=== PATIENT | female | born 1995 | race Two or more races ===

== ENCOUNTER 2018-04-16 14:56 | Day surgery (SDC) | payer OTHER ==
[2018-04-16] MEDS ORDERED: SODIUM CHLORIDE 0.9% 500 ML INFUS.BAG IV ONE (15:00)
--- NOTE | 2018-04-16 15:04 | PDOC ---
Rapid Medical Evaluation Time Seen by Provider: 04/16/18 15:03 Medical Evaluation: Allergies Allergy/AdvReac Type Severity Reaction Status Date / Time Milk Containing Products Allergy Severe Difficulty Verified 03/25/18 05:29 [Milk Products] Breathing SEAFOOD Allergy Severe Difficulty Uncoded 03/25/18 05:29 Breathing 04/16/18 15:03 pt c/o: chest pain, Pt on brief exam: pt ordered for: pt to proceed to the ED
[2018-04-16 15:16] VITALS: BMI 30.4
[2018-04-16] MEDS ORDERED: SODIUM CHLORIDE 1,000 ML IV STA (15:16)
--- NOTE | 2018-04-16 15:16 | PDOC ---
Rapid Medical Evaluation Time Seen by Provider: 04/16/18 15:03 Medical Evaluation: Allergies Allergy/AdvReac Type Severity Reaction Status Date / Time Milk Containing Products Allergy Severe Difficulty Verified 03/25/18 05:29 [Milk Products] Breathing SEAFOOD Allergy Severe Difficulty Uncoded 03/25/18 05:29 Breathing 04/16/18 15:10 Pt c/o: abd pain since yesterday, took motrin no relief, no diarrhea, pain with urination, 6 weeks ago vag delivery, no complications, 1 episode of vomiting this am Pt on brief exam: tachy, 100.1, no back pain, no luq/ruq pain, + rlq tenderness pt ordered for: ua u cx, upreg, cbc, comp, lipase , mag, septic w/u pt to proceed to the ED Discharge Disposition - Diagnosis Abdominal pain - Referrals - Patient Instructions - Post Discharge Activity
[2018-04-16] MEDS ORDERED: ACETAMINOPHEN 1000 MG/100 ML VIAL (NON FORMULARY) IVPB ONE ×2 (15:18→21:15)
[2018-04-16] MEDS ORDERED: ACETAMINOPHEN INJECTION 100 ML IVPB ONE (15:22)
[2018-04-16 15:52] LABS: BASO % 0.3 % (0-2.0); EOS % 0.3 % (0-4.5); HEMATOCRIT 40.9 % (32.4-45.2); HEMOGLOBIN 13.8 GM/dL (10.7-15.3); LYMPH % 9.5 % (8-40); MCH 27.3 pg (25.7-33.7); MCHC 33.7 g/dl (32.0-36.0); MEAN CELL VOLUME 81.1 fl (80-96); MONO % 6.4 % (3.8-10.2); NEUT % 83.5 % (42.8-82.8); PLATELET COUNT 333 K/MM3 (134-434); RBC 5.04 M/mm3 (3.60-5.2); RDW 14.9 % (11.6-15.6); WHITE BLOOD COUNT 14.2 K/mm3 (4.0-10.0)
[2018-04-16 16:10] LABS: MAGNESIUM 1.9 mg/dL (1.8-2.4)
[2018-04-16 16:16] LABS: ALBUMIN 4.1 g/dl (3.4-5.0); ANION GAP 14 MMOL/L (8-16); BILIRUBIN,TOTAL 0.5 mg/dL (0.2-1.0); BLOOD UREA NITROGEN 12 mg/dL (7-18); CALCIUM 9.3 mg/dL (8.5-10.1); CHLORIDE 105 mmol/L (98-107); CO2 22 mmol/L (21-32); CREATININE 0.7 mg/dL (0.55-1.02); GLUCOSE,RANDOM 99 mg/dL (74-106); POTASSIUM 3.8 mmol/L (3.5-5.1); SGOT/AST 47 U/L (15-37); SGPT/ALT 94 U/L (12-78); SODIUM 141 mmol/L (136-145); TOT PROT 9.1 g/dl (6.4-8.2)
[2018-04-16 16:17] LABS: ALK PHOS 113 U/L (45-117)
[2018-04-16 16:28] LABS: ACTIVATED PTT 28.4 SECONDS (25.2-36.5); INR 1.04 (0.83-1.09); PROTHROMBIN TIME (PATIENT) 11.8 SEC (9.7-13.0)
--- NOTE | 2018-04-16 16:36 | PDOC ---
Attending Attestation - Medical Decision Making 04/16/18 19:[address] Abraham, surgeon interventional sale consultant, case discussed with resident. <HerbelkinsalvadorShyannerebel - Last Filed: 04/16/18 20:16> - Resident Resident Name: Mickie Delacruz - ED Attending Attestation I have performed the following: I have examined & evaluated the patient, The case was reviewed & discussed with the resident, I agree w/resident's findings & plan, Exceptions are as noted - HPI HPI: 04/16/18 16:49 Ms Hodges is a 22 yo F who presents to the ER with a complaint of abdominal pain She is almost 3 weeks s/p She reports lower abdominal pain No nausea, vomiting or diarrhea Malodorous vaginal discharge noted today - Physicial Exam PE: 04/16/18 16:50 GENERAL: The patient is in no acute distress. LUNGS: Breath sounds equal, clear to auscultation bilaterally. No wheezes, and no crackles. HEART:Regular rate and rhythm, normal S1 and S2 without murmur, rub or gallop. ABDOMEN: Soft, lower abdominal tenderness to palpation, no involuntary guarding NEUROLOGICAL: Cranial nerves II through XII grossly intact. Normal speech. No focal neurological deficits. SKIN: Warm, Dry, - Medical Decision Making 04/16/18 16:52 22 yo F presenting to the ER with fever and abdominal pain DD: endometritis, retained product, Appendicitis, UTI, pyelonephritis Will do: Labs, US to eval for retained products, CT to eval for appendicitis IVF Anti pyretics Re assess 04/16/18 17:09 Laboratory Tests 04/16/18 04/16/18 04/16/18 15:45 15:45 15:45 WBC 14.2 H Hgb 13.8 Hct 40.9 D Plt Count 333 D Absolute Neuts (auto) 11.9 H Neutrophils % 83.5 H D Lymphocytes % 9.5 D INR 1.04 BUN 12 Creatinine 0.7 Urine HCG, Qual 04/16/18 15:45 WBC Hgb Hct Plt Count Absolute Neuts (auto) Neutrophils % Lymphocytes % INR BUN Creatinine Urine HCG, Qual Negative 04/16/18 17:29 EKG: NSR rate of 100 bpm, axis nml, intervals nml, no st elevations or depressions Pt signed out to Dr. Alvarez CT demonstrates acute appendicitis Pt told about CT findings Call placed to Dr Abraham <Jessica Valentin - Last Filed: 04/19/18 09:14> Attestations - Attestations 04/16/18 19:47 Documentation prepared by Liban Marshall, acting as manager medical device for Jessica Valentin MD. <Liban Marshall - Last Filed: 04/16/18 20:16>
--- NOTE | 2018-04-16 17:03 | PDOC ---
History of Present Illness - General Chief Complaint: Pain Stated Complaint: ABDOMINAL PAIN Time Seen by Provider: 04/16/18 15:03 - History of Present Illness Initial Comments: Jacinta Hodges is a 22yo woman with a PMH of hypothyroidism and recent vaginal delivery 3 weeks ago who presents with lower abdominal pain, R>L, since last night. She reports that the pain first started overnight at about 1:30. She took some ibuprofen at that time and went back to sleep. However, she noticed that the pain was still present this morning when she woke up. Initially it was throughout her entire abdomen, but she felt that it was more tender on the right side when she was evaluated in triage today. The pain is about an 8/10 in intensity. She also reports that going over bumps in the car on the way to the ED caused a lot of abdominal pain. Ms Hodges denies any nausea, vomiting, diarrhea, or constipation but does endorse anorexia today. She was only able to drink some tea this morning. She did not check her temperature at home but states her told her she felt warm this morning. Otherwise, she has been well following her delivery. She has not had any unusual vaginal discharge but feels there may have been a little bit of a bad odor this morning. She has not noticed any odor previously. She denies any dysuria, urinary frequency, or urgency. She decided to present to the ED for evaluation because the pain had worsened overnight and throughout the morning rather than improving. Past History - Past Medical History Allergies/Adverse Reactions: Allergies Allergy/AdvReac Type Severity Reaction Status Date / Time Milk Containing Products Allergy Severe Difficulty Verified 04/16/18 15:10 [Milk Products] Breathing SEAFOOD Allergy Severe Difficulty Uncoded 04/16/18 15:10 Breathing Home Medications: Ambulatory Orders Levothyroxine [Synthroid -] 50 mcg PO DAILY 03/24/18 Levothyroxine [Synthroid -] 112 mcg PO DAILY 03/24/18 Asthma: No Cancer: No Cardiac Disorders: No COPD: No DVT: No Diabetes: No HTN: No Seizures: No Thyroid Disease: Yes - Reproductive History (#): 1 Para: 0 - Suicide/Smoking/Psychosocial Hx Smoking Status: No Smoking History: Never smoked Have you smoked in the past 12 months: No Number of Cigarettes Smoked Daily: 0 Information on smoking cessation initiated: No Hx Alcohol Use: No Drug/Substance Use Hx: No Substance Use Type: None Hx Substance Use Treatment: No Review of Systems - Review of Systems Comments:: General: No fevers, no chills, no weight change, no malaise. +anorexia HEENT: No changes in vision, no changes in hearing, no congestion, no sore throat CV: No chest pain, no palpitations, no LE edema Pulm: No SOB, no cough, no wheezing GI: No nausea or vomiting, no change in bowel habits, no melena. +lower abdominal pain : No frequency, no urgency, no dysuria. +recent vaginal delivery Musc: No back pain, no joint swelling, no recent injury Skin: No rash, no lesions, no erythema Endo: No excessive thirst, no heat/cold intolerance Heme: No unusual bruising or bleeding, no swollen glands Neuro: No syncope, no numbness/tingling, no focal weakness Vasc: No claudication Psych: No recent change in mood, no SI or HI *Physical Exam - Vital Signs Last Vital Signs Temp Pulse Resp BP Pulse Ox 100.1 F H 128 H 18 123/83 100 04/16/18 15:11 04/16/18 15:11 04/16/18 15:11 04/16/18 15:11 04/16/18 15:11 - Physical Exam Comments: General: Comfortable, no acute distress HEENT: PERRL, EOMI, MMM, voice normal, normal neck ROM, no LAD Cards: Tachycardic, regular, no rub/murmur appreciated Pulm: Comfortable on room air, clear to auscultation bilaterally Abd: Soft, non-distended. Mildly TTP in lower abdomen. No : No CVA tenderness Ext: Atraumatic. No LE edema. ROM intact. Strength 5/5 and equal bilaterally Vasc: Extremities WWP. Palpable radial and pedal pulses bilaterally Neuro: A&Ox3, CN grossly intact, normal speech, motor/sensory grossly intact and symmetric Psych: Mood appropriate to situation ED Treatment Course - LABORATORY CBC & Chemistry Diagram: 04/16/18 15:45 04/16/18 15:45 - ADDITIONAL ORDERS Additional order review: Laboratory Results 04/16/18 04/16/18 04/16/18 16:40 15:45 15:45 PT with INR INR PTT (Actin FS) Sodium Potassium Chloride Carbon Dioxide Anion Gap BUN Creatinine Creat Clearance w eGFR Random Glucose Lactic Acid Calcium Magnesium 1.9 Total Bilirubin AST ALT Alkaline Phosphatase Total Protein Albumin Lipase 120 Urine HCG, Qual Negative Blood Type O POSITIVE Antibody Screen Negative 04/16/18 04/16/18 04/16/18 15:45 15:45 15:45 PT with INR 11.80 INR 1.04 PTT (Actin FS) 28.4 Sodium 141 Potassium 3.8 Chloride 105 Carbon Dioxide 22 Anion Gap 14 BUN 12 Creatinine 0.7 Creat Clearance w eGFR > 60 Random Glucose 99 Lactic Acid 2.1 H Calcium 9.3 Magnesium Total Bilirubin 0.5 AST 47 H ALT 94 H Alkaline Phosphatase 113 Total Protein 9.1 H Albumin 4.1 Lipase Urine HCG, Qual Blood Type Antibody Screen 04/16/18 15:45 RBC 5.04 MCV 81.1 MCHC 33.7 RDW 14.9 D MPV 8.0 Neutrophils % 83.5 H D Lymphocytes % 9.5 D Monocytes % 6.4 Eosinophils % 0.3 D Basophils % 0.3 - RADIOLOGY Radiology Studies Ordered: Category Date Time Status ABDOMEN & PELVIS CT WITH CONTR [CT] Stat CT Scan 04/16/18 16:49 Ordered PELVIC / BLADDER US [US] Stat Ultrasound 04/16/18 16:49 Ordered - Medications Given in the ED: ED Medications Discontinued Medications Generic Name Dose Route Start Last Admin Trade Name Gabrielq PRN Reason Stop Dose Admin Acetaminophen 1,000 mg 04/16/18 15:18 04/16/18 15:55 Ofirmev Injection - IVPB 04/16/18 15:19 1,000 mg ONCE ONE Administration Sodium Chloride 1,000 mls @ 1,000 mls/hr 04/16/18 15:16 04/16/18 15:55 Normal Saline - IV 04/16/18 16:15 1,000 mls/hr ASDIR STA Administration Medical Decision Making - Medical Decision Making 04/16/18 17:24 Jacinta Hodges is a 22yo woman with h/o hypothyroidism, recent vaginal delivery who presents with lower abdominal pain, tachycardia, elevated temperature, anorexia since yesterday. - Most concern for UTI, appendicitis, retained products, endometritis - Labs completed in triage- notable for WBC 14.2, lactate 2.1 - UA pending - CT abd/pelvis and pelvic US ordered for evaluation - Will need pelvic exam completed, but currently in the hallway. Will complete when a private room is available. 04/16/18 18:13 - Ultrasound negative for retained products - CT completed, indicates acute appendicitis - Contacted Dr Abraham. Will admit for OR - No abx in ED, will give in OR - NPO prior to surgery, IVF ordered (D5 1/2 NS with 20meq k+) - Discussed plan with patient, she understands that the details of the surgery will be explained upstairs. Admit to [facility] per Dr Abraham. Discussed with Dr Valentin. *DC/Admit/Observation/Transfer Diagnosis at time of Disposition: Appendicitis - Discharge Dispostion Decision to Admit order: Yes - Referrals - Patient Instructions - Post Discharge Activity
[2018-04-16 17:05] LABS: URINE APPEARANCE SLCLOUDY; URINE BILIRUBIN NEGATIVE (<2.0 mg/dL); URINE COLOR LTYELLOW; URINE GLUCOSE (UA) NEGATIVE (NEGATIVE); URINE KETONE NEGATIVE (NEGATIVE); URINE NITRITE NEGATIVE (NEGATIVE); URINE PROTEIN NEGATIVE (NEGATIVE); URINE UROBILINOGEN NEGATIVE mg/dL (0.2-1.0)
[2018-04-16 17:14] LABS: URINE LEUK ESTERASE 3+ (NEGATIVE)
[2018-04-16 17:25] LABS: EPI CELLS RARE /HPF (FEW); URINE MUCUS RARE
[2018-04-16] MEDS ORDERED: PIPERACILLIN/TAZOB 4.5 GM 4.5 GM in DEXTROSE 5%-WATER 100 ML IVPB ONE (19:45)
[2018-04-16] MEDS ORDERED: D5-1/2NS+20 MEQ KCL - 20 MEQ/1,000 ML INFUS.BAG IV SCH (20:15)
[2018-04-16] MEDS ORDERED: PIPERACILLIN/TAZOB 4.5 GM 4.5 GM/100 ML BAG IVPB ONE (20:21)
[2018-04-16] MEDS ORDERED: ONDANSETRON 4 MG/2 ML VIAL IVPUSH PRN (21:08)
[2018-04-16] MEDS ORDERED: LACTATED RINGERS SOLUTION 1,000 ML IV SCH (21:15)
[2018-04-16] MEDS ORDERED: BUPIVACAINE HCL/PF 0.5% (5MG/ML) 10 ML VIAL ONE (21:19)
[2018-04-16] MEDS ORDERED: PROPOFOL 20 ML ONE (21:29)
[2018-04-16] MEDS ORDERED: SUCCINYLCHOLINE CHLORIDE 200 MG/10 ML VIAL ONE (21:29)
[2018-04-16] MEDS ORDERED: ROCURONIUM BROMIDE 50 MG/5 ML VIAL ONE (21:30)
[2018-04-16] MEDS ORDERED: MIDAZOLAM HCL 2 MG/2 ML SINGLE DOSE VIAL ONE (21:31)
--- NOTE | 2018-04-16 21:32 | HP ---
Admitting History and Physical - Admission Chief Complaint: lower abdominal pain R > L History of Present Illness: 22yo F with hypothyroidism, 3 wks from [facility], began having generalized abdominal pain ~1am, initially thought it was cramps. She also had some subjective fever, and stopped , worried if she was sick that the baby would get sick too. She had decreased appetite, and tried to sleep, but could not get comfortable. In the daytime, she ate very little, had N/V (yellow fluid), and the pain persisted in her lower abdomen, also feeling some painful sensation with urination as well. She was advised by family to come to the hospital, and the bumps in the car ride hurt her abdomen. In the ER, she is afebrile, but wbc is 14, and CT shows acute appendicitis. On exam, she realized she is more tender in the RLQ. The pain is a little better, but still present. She is seen just before OR. History Source: Patient Limitations to Obtaining History: No Limitations - Past Medical History ...LMP: 02/03/12 ...: No (3 wks ) ...Para: 2 (5yo and 3wo) Endocrine: Yes: Hypothyroidism - Past Surgical History Past Surgical History: Yes: None - Smoking History Smoking history: Never smoked Have you smoked in the past 12 months: No - Alcohol/Substance Use Hx Alcohol Use: No (rarely) History of Substance Use: reports: None - Social History Usual Living Arrangement: Yes: With Spouse (and children) ADL: Independent History of Recent Travel: No Home Medications - Allergies Allergies/Adverse Reactions: Allergies Allergy/AdvReac Type Severity Reaction Status Date / Time Milk Containing Products Allergy Severe Difficulty Verified 04/16/18 15:10 [Milk Products] Breathing SEAFOOD Allergy Severe Difficulty Uncoded 04/16/18 15:10 Breathing - Home Medications Home Medications: Ambulatory Orders Levothyroxine [Synthroid -] 50 mcg PO DAILY 03/24/18 Levothyroxine [Synthroid -] 112 mcg PO DAILY 03/24/18 Home Medications (free text): takes total 162mcg daily Family Disease History - Family Disease History Family History: Unremarkable (noncontributory) Review of Systems - Review of Systems Constitutional: reports: Fever, Loss of Appetite. denies: Chills Eyes: reports: Other (wears glasses for distance). denies: Recent Change in Vision HENT: denies: Difficult Swallowing, Throat Pain Neck: denies: Swollen Glands, Tenderness Cardiovascular: denies: Chest Pain, Palpitations Respiratory: denies: Cough, SOB Gastrointestinal: reports: Abdominal Pain (with hpi), Nausea, Vomiting. denies : Constipation, Diarrhea Genitourinary: reports: Pain (in pelvis with urination at home). denies: Burning, Dysuria Breasts: reports: Other ( but not today or last night) Musculoskeletal: reports: Back Pain. denies: Joint Pain, Muscle Pain Integumentary: denies: Change in Color, Rash Neurological: reports: Headache. denies: Dizziness Psychiatric: denies: Anxiety, Depression Physical Examination Vital Signs: Vital Signs Temperature 98.8 F 04/16/18 19:51 Pulse Rate 96 H 04/16/18 19:51 Respiratory Rate 20 04/16/18 19:51 Blood Pressure 102/65 04/16/18 19:51 O2 Sat by Pulse Oximetry (%) 100 04/16/18 19:51 Constitutional: Yes: Well Nourished, No Distress, Calm Eyes: Yes: Conjunctiva Clear, EOM Intact HENT: Yes: Atraumatic, Normocephalic Neck: Yes: Supple, Trachea Midline Cardiovascular: Yes: Regular Rate and Rhythm Respiratory: Yes: Regular, CTA Bilaterally Gastrointestinal: Yes: Soft, Abdomen, Obese, Tenderness (RLQ focally without rebound or guarding, referred from RUQ and suprapubic areas) ...Rectal Exam: Yes: Deferred Renal/: No: CVA Tenderness - Left, CVA Tenderness - Right Breast(s): Yes: Other (full/lactating) Musculoskeletal: No: Joint Stiffness, Joint Swelling Extremities: No: Cool, Cyanosis Edema: No Peripheral Pulses WNL: Yes Integumentary: No: Jaundice, Rash Neurological: Yes: Alert, Oriented Psychiatric: Yes: Alert, Oriented Labs: CBC, BMP 04/16/18 15:45 04/16/18 15:45 CMP Sodium 141 mmol/L (136-145) 04/16/18 15:45 Potassium 3.8 mmol/L (3.5-5.1) 04/16/18 15:45 Chloride 105 mmol/L (98-107) 04/16/18 15:45 Carbon Dioxide 22 mmol/L (21-32) 04/16/18 15:45 Anion Gap 14 MMOL/L (8-16) 04/16/18 15:45 BUN 12 mg/dL (7-18) 04/16/18 15:45 Creatinine 0.7 mg/dL (0.55-1.02) 04/16/18 15:45 Creat Clearance w eGFR > 60 (>60) 04/16/18 15:45 Random Glucose 99 mg/dL (74-106) 04/16/18 15:45 Lactic Acid 1.1 mmol/L (0.0-2.0) 04/16/18 19:32 Calcium 9.3 mg/dL (8.5-10.1) 04/16/18 15:45 Magnesium 1.9 mg/dL (1.8-2.4) 04/16/18 15:45 Total Bilirubin 0.5 mg/dL (0.2-1.0) 04/16/18 15:45 AST 47 U/L (15-37) H 04/16/18 15:45 ALT 94 U/L (12-78) H 04/16/18 15:45 Alkaline Phosphatase 113 U/L (45-117) 04/16/18 15:45 Total Protein 9.1 g/dl (6.4-8.2) H 04/16/18 15:45 Albumin 4.1 g/dl (3.4-5.0) 04/16/18 15:45 Lipase 120 U/L (73-393) 04/16/18 15:45 INR, PTT INR 1.04 (0.83-1.09) 04/16/18 15:45 Urine Test Results Urine Color Ltyellow 04/16/18 15:45 Urine Appearance Slcloudy 04/16/18 15:45 Urine pH 5.0 (5.0-8.0) 04/16/18 15:45 Ur Specific Thompson 1.013 (1.001-1.035) 04/16/18 15:45 Urine Protein Negative (NEGATIVE) 04/16/18 15:45 Urine Glucose (UA) Negative (NEGATIVE) 04/16/18 15:45 Urine Ketones Negative (NEGATIVE) 04/16/18 15:45 Urine Blood 1+ (NEGATIVE) H 04/16/18 15:45 Urine Nitrite Negative (NEGATIVE) 04/16/18 15:45 Urine Bilirubin Negative (<2.0 mg/dL) 04/16/18 15:45 Ur Leukocyte Esterase 3+ (NEGATIVE) H 04/16/18 15:45 Ur Epithelial Cells Rare /HPF (FEW) 04/16/18 15:45 Urine Mucus Rare 04/16/18 15:45 Imaging - Results Cat Scan: Report Reviewed, Image Reviewed (images personally reviewed - enlarged , fluid-filled appendix with prominent wall; no abscess, free fluid or air, no obstruction) Problem List - Problems (1) Appendicitis, acute Assessment/Plan: admit [facility]H/[facility] to surgery NPO/IVF until postop periop antibiotics pain meds prn - nonnarcotics first line DVT prophylaxis pump & dump breast milk Discussed with patient risks, benefits and alternatives of laparoscopic possible open appendectomy, including but not limited to bleeding, infection, injury to adjacent structures, intestinal leak or injury, intraabdominal abscess , incisional hernia, need for further procedures, ; alternatives include antibiotics, delayed or no surgery - risks of this include failure of nonoperative therapy, perforation, sepsis, recurrence, . Patient desires to proceed with operation - will take to OR for above. Informed consent signed for same. anticipate resuming po postop Code(s): K35.80 - UNSPECIFIED ACUTE APPENDICITIS Qualifiers: Acute appendicitis type: with localized peritonitis Qualified Code(s): K35.3 - Acute appendicitis with localized peritonitis (2) Disease of digestive system complicating puerperium Assessment/Plan: 3 wks from pump & dump breast milk until at least 48 hrs after last dose of narcotic/ anesthetic/antibiotic Code(s): O99.63 - DISEASES OF THE DIGESTIVE SYSTEM COMPLICATING THE PUERPERIUM (3) Bilateral lower abdominal pain Code(s): R10.31 - RIGHT LOWER QUADRANT PAIN; R10.32 - LEFT LOWER QUADRANT PAIN
[2018-04-16] MEDS ORDERED: CEFOXITIN SODIUM 2 GM IVPB ONE (21:48)
[2018-04-16] MEDS ORDERED: cefOXitin SODIUM 1 GM VIAL (RESTRICTED TO ID) IVPB ONE (21:56)
[2018-04-16] MEDS ORDERED: DEXAMETHASONE SOD PHOSPHATE 4 MG/1 ML VIAL ONE (22:11)
[2018-04-17] MEDS ORDERED: ACETAMINOPHEN INJECTION 100 ML IVPB ONE (00:16)
[2018-04-17] MEDS ORDERED: LACTATED RINGERS SOLUTION 1,000 ML IV SCH (00:23)
[2018-04-17] MEDS ORDERED: CEFOXITIN SODIUM 2 GM in DEXTROSE 5%-WATER - 100 ML IVPB ONE (06:00)
[2018-04-17] MEDS ORDERED: ACETAMINOPHEN 325 MG TABLET (FP) PO SCH (06:00)
[2018-04-17] MEDS ORDERED: LEVOTHYROXINE NA 50 MCG TABLET (FP) ONE (06:14)
[2018-04-17] MEDS ORDERED: LEVOTHYROXINE NA 112 MCG TABLET (FP) ONE (06:14)
[2018-04-17] MEDS: ACETAMINOPHEN 325 MG TABLET (FP) PO SCH ×4 (06:25→18:08)
[2018-04-17] MEDS ORDERED: LEVOTHYROXINE NA 50 MCG TABLET (FP) PO SCH ×3 (07:00)
[2018-04-17] MEDS ORDERED: LEVOTHYROXINE PO SCH (07:00)
[2018-04-17] MEDS ORDERED: LEVOTHYROXINE NA 112 MCG TABLET (FP) PO SCH ×3 (07:00)
[2018-04-17] MEDS ORDERED: IBUPROFEN 600 MG TABLET (FP) PO SCH (09:00)
[2018-04-17] MEDS: IBUPROFEN 600 MG TABLET (FP) PO SCH ×2 (09:13→16:33)
--- NOTE | 2018-04-17 13:37 | PN ---
Progress Note (short form) - Note Progress Note: Anesthesia POD#1 S/P Appendectomy under GA VSS,no N/V,pain is under control. No complications seen. Nicol Bynum MD.
--- NOTE | 2018-04-17 13:49 | EKG ---
Test Reason : Blood Pressure : / mmHG Vent. Rate : 106 BPM Atrial Rate : 106 BPM P-R Int : 158 ms QRS Dur : 088 ms QT Int : 344 ms P-R-T Axes : 049 080 036 degrees QTc Int : 456 ms SINUS TACHYCARDIA OTHERWISE NORMAL ECG NO PREVIOUS ECGS AVAILABLE Confirmed by PARVEZ PAULINO MD ([id number]) on 04/17/2018 1:49:41 PM Referred By: Confirmed By:PARVEZ PAULINO MD
[2018-04-17 17:43] VITALS: BP 138/63; PULSE 79; TEMP 98.9
--- NOTE | 2018-04-17 18:30 | DS ---
Physical Examination Vital Signs: Vital Signs Temperature 98.9 F 04/17/18 17:42 Pulse Rate 79 04/17/18 17:42 Respiratory Rate 18 04/17/18 17:42 Blood Pressure 138/63 04/17/18 17:42 O2 Sat by Pulse Oximetry (%) 95 04/17/18 07:03 Vital Signs Period Temp Pulse Resp BP Sys/Mosley Pulse Ox Last 24 Hr 98.2 F-99.1 F 79-106 12-24 102-139/51-80 95-100 Findings/Remarks: Stable s/p Lap Appendectomy, tolerating diet, ambulating with minor discomfort, passing flatus, using IS with no other complaints. Constitutional: Yes: Well Nourished, No Distress, Calm, Obese Eyes: Yes: Conjunctiva Clear, EOM Intact HENT: Yes: Atraumatic, Normocephalic Neck: Yes: Supple, Trachea Midline Cardiovascular: Yes: Regular Rate and Rhythm, S1, S2 Respiratory: Yes: Regular, CTA Bilaterally Gastrointestinal: Yes: Normal Bowel Sounds, Soft, Tenderness (periumbilcal tenderness (incisonal), resolved RLQ) ...Rectal Exam: Yes: Deferred Renal/: No: CVA Tenderness - Left, CVA Tenderness - Right Musculoskeletal: No: Muscle Pain, Muscle Weakness Extremities: No: Cool, Cyanosis Edema: No Peripheral Pulses WNL: Yes Peripheral Pulses: Left Doralis Pedis: 2+, Right Dorsalis Pedis: 2+ Integumentary: Yes: Incision. No: Jaundice, Rash Wound/Incision: Yes: Clean/Dry, Well Approximated, Dressing Dry and Intact Neurological: Yes: Alert, Oriented Psychiatric: Yes: Alert, Oriented Labs: CBC, BMP 04/16/18 15:45 04/16/18 15:45 Discharge Summary Reason For Visit: APPENDICITIS Current Active Problems Appendicitis (Acute) Appendicitis, acute (Acute) Bilateral lower abdominal pain (Acute) Disease of digestive system complicating puerperium (Acute) Procedures: Principal: Laparoscopic Appendectomy Hospital Course: Admitted for an emergency surgical procedure. uneventful procedure, stable postoperatively overnight. Tolerating diet, no nausea, passing flatus no BM, ambulating with some umbilical discomfort but improved compared to presentation. Requesting to be discharged home. Condition: Improved - Instructions Diet, Activity, Other Instructions: Postoperative instructions: You had a laparoscopic appendectomy on DATE by Dr. Bronson Abraham of [facility]. Activity: Resume your usual activities gradually, but no heavy exertion or lifting more than 10-15 pounds for 1 month. Remove dressings 48 hours after surgery; sticky tapes underneath will fall off by themselves. You may shower daily starting then, just pat the incision areas dry. No bath or swimming until skin incisions have healed. Eat lightly at first, but advance to your usual diet as tolerated. Pain: For pain, you may use and alternate Tylenol (acetaminophen) 1-2 pills and/ or ibuprofen 200 mg (1-3 pills) every 6 hours each as needed; this means that you can take one OR the other at 3-hour intervals. If you are prescribed a Tylenol/narcotic combination for severe pain, use it instead of plain Tylenol as needed and switch back when your pain starts decreasing. Do not take more than 4000mg of acetaminophen in a day. Take medications as prescribed or indicated on the labeling. Follow-up: Call Dr. Abraham's office at [phone] to make your postop appointment (Saturday in approximately 2 weeks after surgery). Clinic is held in the [facility] on the first floor of [facility]. Call the office if you have: * increasing pain not responsive to pain medication * fever of 101F or higher * vomiting * unusual or increasing bleeding or drainage from wounds * increasing redness or swelling at wound sites * inability to urinate Also, see your primary medical doctor within 1-2 weeks. Referrals: Yael Han MD [Primary Care Provider] - Disposition: HOME - Home Medications Comprehensive Discharge Medication List: Ambulatory Orders Levothyroxine [Synthroid -] 50 mcg PO DAILY 03/24/18 Levothyroxine [Synthroid -] 112 mcg PO DAILY 03/24/18 Sennosides [Senna] 8.6 mg PO BID #10 tablet 04/17/18
--- NOTE | 2018-04-18 15:00 | PATH ---
Surgical Pathology Report Patient Name: NEVILLE AQUINO [facility]. Rec. #: [id number] /Age/Gender: 1995 (Age: 22) / F Account: [id number] Location: AMBULATORY SURG Taken: 04/16/2018 Received: 04/17/2018 Reported: 04/18/2018 Physicians: Bronson Abraham M.D. PHYSICIAN EMERGENCY DEPT Specimen(s) Received APPENDIX Clinical History Acute appendicitis Final Diagnosis Appendix, laparoscopic appendectomy: Acute appendicitis and periappendicitis. Electronically Signed Xiao Moreno M.D. Gross Description Received in formalin, labeled "appendix," is a 4.7 cm. in length vermiform appendix with a stapled margin of resection and moderate attached fat. The serosa is jensen-bright with attached exudate. Sectioning reveals a focally hemorrhagic lumen. The wall of the appendix averages 0.2 cm. in thickness. [facility] Department Supervisor sections are submitted in one cassette. /04/17/2018 saudi04/17/2018
--- NOTE | 2018-04-23 11:43 | OP ---
Operative Note - Note: Operative Date: 04/16/18 Pre-Operative Diagnosis: acute appendicitis Operation: laparoscopic appendectomy Findings: inflamed appendix Post-Operative Diagnosis: Same as Pre-op Surgeon: Bronson Abraham Anesthesiologist/THEATRE [employer] PROFESSOR: Karen Dejesus Anesthesia: General, Local (0.5% marcaine) Specimens Removed: appendix to pathology Estimated Blood Loss (mls): 3 Drains & Tubes with Location: Carrera out at end of case Drains, Volume Out (mls): 1,200 (UOP) Fluid Volume Replaced (mls): 1,200 (crystalloid) Operative Report Dictated: Yes
--- NOTE | 2018-05-05 19:47 | OP ---
DATE OF OPERATION: 04/16/2018 PREOPERATIVE DIAGNOSIS: Acute appendicitis. POSTOPERATIVE DIAGNOSIS: Acute appendicitis. PROCEDURE: Laparoscopic appendectomy. SURGEON: Bronson Abraham MD ANESTHESIA: General endotracheal and local 0.5% Marcaine. ESTIMATED BLOOD LOSS: 3 mL FLUIDS: Crystalloid 1200 mL. URINE OUTPUT: 1200 mL. Carrera was removed at the end of the case. SPECIMEN: Appendix to pathology. FINDINGS: An inflamed appendix. DISPOSITION: Stable and extubated to PACU. INDICATIONS FOR PROCEDURE: Patient is a 22-year-old female with hypothyroidism, who is 3 weeks from a vaginal delivery of her second child and began having generalized abdominal pain approximately 1 a.m. Initially, thought it was cramps. She had also had some subjective fever and stopped . Had some associated anorexia, but because of the pain, could not get comfortable in order to sleep. She did ultimately have some nausea and vomiting with persistent pain and some discomfort with urination and was advised to come to the hospital. In the emergency room, she was afebrile with a white count of 14,[address] showing acute appendicitis. Risks, benefits, and alternatives of laparoscopic, possible open appendectomy were discussed with the patient including, but not limited to, bleeding, infection, injury to adjacent structures, intestinal leak or injury, intraabdominal abscess, incisional hernia, need for further procedures, and . Alternatives inclusive of antibiotics and delayed or no surgery were also discussed with attendant risks of failure of nonoperative therapy, perforation, sepsis, recurrence, and . Patient does desire to proceed with the operation and signed informed consent for the same. OPERATIVE TECHNIQUE: The patient was brought to the operating room and laid supine on the operating table. Sequential compression devices were applied to bilateral lower extremities, and appropriate antibiotics were given in the preoperative period. After induction and intubation by Anesthesia, a Carrera catheter was placed in the patient's bladder, which was removed at the end of the case. The patient's abdomen was prepped and draped in sterile fashion, and a small infraumbilical incision was made in the patient's abdomen with scalpel, which was carried into subcutaneous tissues with electrocautery until the abdominal wall fascia was identified, scored, and elevated with Aris clamps. The peritoneum was entered bluntly with the tip of a clamp and a fingertip inserted to ensure entry into the peritoneal cavity and the absence of any underlying adhesions. A stay stitch of 0 Vicryl in [id number] fashion was placed in the fascia for later closure, and a Jarret trocar was introduced directly into the abdominal cavity and secured in place with a balloon. The abdomen was insufflated with carbon dioxide. The patient was placed in Trendelenburg position and a laparoscope inserted to inspect the abdominal cavity. She was also planed with the right side upward, and 2 additional 5-mm ports were placed in the left lower quadrant and suprapubic areas under direct vision. The camera was moved to the left lower quadrant port and graspers introduced through the other 2 ports to gently manipulate the small bowel medially, exposing the cecum and the appendix in the right lower quadrant. The appendix did appear to be somewhat inflamed and mildly enlarged. It was grasped and elevated with 1 grasper, and a [place] dissector was used to create a window at the base of the appendix where it joined the cecum through the other port. Once this window had been created, an Endo stapler with a 45 blue load was introduced and used to transect the appendiceal base. The staple line was inspected for hemostasis which was noted to be complete. The appendix was then held up again and a [place] dissector used to ensure that the mesoappendix was from the adjacent veil of Treves and terminal ileum. This was accomplished bluntly. The mesoappendix was then transected with white load of the Endo stapler. Once this had been accomplished, the appendix was completely free and was placed in an Endo Catch bag to be retrieved out the umbilical port site. Prior to doing so, the operative field was inspected for hemostasis and the staple lines again re-inspected. There was no bleeding noted, and there had been no fluid present in the pelvis or the right lower quadrant. Thus, the patient was returned to neutral position and the small bowel and omentum gently returned to the right lower quadrant over the operative area. The appendix was then retrieved out the umbilical port site with the suprapubic port being removed under direct vision and the camera and the left lower quadrant port being removed altogether. The abdomen was exsufflated of carbon dioxide, and the stay suture at the umbilical site was tied to close the fascia there. The appendix was passed off for a pathology specimen. Local anesthetic was infiltrated into the port sites, and skin was closed with 4-0 Vicryl subcuticular sutures including a running at the umbilical site. Dressings of benzoin and Steri-Strips as well as gauze and Tegaderm were placed over all 3 sites. Counts were correct at the end of the procedure. The patient was then awakened and extubated by Anesthesia, moved back to a stretcher, and taken to the recovery room in stable condition, having tolerated the procedure well. Ren [id number]
== END 2018-04-17 19:00 | disposition home or self-care (01) ==
LOC: JER 14:56 → JERBED 20:03 → JASUSAT 04-17 00:12 → JER 04-17 00:12 → J7W 04-17 01:15 → JASUSAT 04-17 19:00
PROVIDERS: ATTEND Surgery
PROC: 0DTJ4ZZ Resection of Appendix, Percutaneous Endoscopic Approach (ICD-10-PCS; principal; 2018-04-17)
DX: K35.80 Unspecified acute appendicitis (principal)
CPT/HCPCS: 36415; 71045-TC-FY; 74177-TC; 76856-TC; 80053; 81003; 81015; 83605; 83690; 83735; 84703; 85025; 85610; 85730; 86850; 86900; 86901; 87040; 87086; 88304-TC; 93005; 93010; 94010; 94760; 99283-25; J0131; J7030

== ENCOUNTER 2020-03-10 00:25 | Inpatient (IN) | payer OTHER ==
[2020-03-10 04:16] LABS: INR 0.88 (0.83-1.09); PROTHROMBIN TIME (PATIENT) 10.4 SEC (9.7-13.0)
[2020-03-10 04:18] LABS: ACTIVATED PTT 27.8 SECONDS (25.2-36.5)
[2020-03-10 04:36] LABS: BASO % 0.2 % (0-2.0); EOS % 1.6 % (0-4.5); HEMATOCRIT 28.4 % (32.4-45.2); HEMOGLOBIN 9.1 GM/dL (10.7-15.3); MCH 22.9 pg (25.7-33.7); MCHC 32.1 g/dl (32.0-36.0); MEAN CELL VOLUME 71.3 fl (80-96); MEAN PLT VOLUME 8.4 fl (7.5-11.1); MONO % 7.4 % (3.8-10.2); NEUT % 66.8 % (42.8-82.8); PLATELET COUNT 299 K/MM3 (134-434); RBC 3.99 M/mm3 (3.60-5.2); RDW 19.9 % (11.6-15.6); RETICULOCYTES 1.86 % (0.5-1.5); WHITE BLOOD COUNT 9.3 K/mm3 (4.0-10.0)
[2020-03-10 04:43] LABS: BLOOD UREA NITROGEN 9.4 mg/dL (7-18); CALCIUM 8.7 mg/dL (8.5-10.1); CREATININE 0.7 mg/dL (0.55-1.3); POTASSIUM 3.8 mmol/L (3.5-5.1); URIC ACID 5.4 mg/dL (2.6-7.2)
[2020-03-10 05:37] VITALS: BMI 38.0
[2020-03-10] MEDS: ELECTROLYTE-148 SOLN 1,000 ML IV SCH (06:39)
--- NOTE | 2020-03-10 06:40 | HP ---
Past Medical History - Primary Care Physician PCP:: Faraz Deleon - Admission Chief Complaint: Labor pain History of Present Illness: Patient reports passing mucus plug and subsequently worsening of contractions History Source: Patient Limitations to Obtaining History: No Limitations - Past Medical History FACILITY ENGINEER: No: Alzheimer's, CVA, Dementia, Migraine, Multiple Sclerosis, Peripheral Neuropathy, Parkinson's, Seizure, Syncope, TIA, Vertigo, Other Cardiovascular: No: AFIB, Aneurysm, Aortic Insufficiency, Aortic Stenosis, CAD, CHF, Deep Vein Thrombosis, HTN, Hyperlipdemia, CT, Mitral Insufficiency, Mitral Stenosis, Murmur, Pulmonary Hypertension, Other Gastrointestinal: No: Ascites, Cancer, Constipation, Crohn's Disease, Diverticulitis, Diverticulosis, Esophageal Varices, Gastritis, GERD, GI Bleed, Hemorrhoids, Hiatal Hernia, Inflamatory Bowel Disease, Irritable Bowel Disease, Pancreatitis, Peptic Ulcer Disease, Ulcerative Colitis, Other Hepatobiliary: No: Cirrhosis, Cholelithiasis, Cholecystitis, Choledocholithiasis, Hepatitis A, Hepatitis B, Hepatitis C, Other Renal/: No: Renal Failure, Renal Inusuff, BPH, Cancer, Hematuria, Hemodialysis, Neurogenic Bladder, Renal Calculi, UTI, Other Reproductive: No: Ectopic , Endometriosis, Fibroids, PID, Polycystic Ovary Syndrome, Postmenopausal, Other ...: 3 ...Para: 2 ...Term: 2 ...Living Children: 2 ...LMP: 06/06/19 ... Weeks Gestation by Dates: 39.5 ...EDC by Dates: 03/12/20 ...EDC by Sono: 03/12/20 Heme/Onc: Yes: Anemia Infectious Disease: No: AIDS, C-Diff, Herpes Zoster, HIV, MRSA, STD's, Tuberculosis, VREF, Other Psych: No: Addictions, Anxiety, Bipolar, Depression, Panic, Psychosis, Schizophrenia, Other Musculoskeletal: No: Bursitis, Chronic low back pain, Hemiparesis, Hemiplegia, Osteoarthritis, Paraplegia, Other Rheumatology: No: Fibromyalgia, Gout, Lupus, Rheumatoid Arthritis, Sarcoidosis, Vasculitis, Other ENT: No: Allergic Rhinitis, Sinusitis, Other Endocrine: Yes: Hypothyroidism - Past Surgical History Past Surgical History: Yes: None Hx Myomectomy: No Hx Transabdominal Cerclage: No - Smoking History Smoking history: Never smoked Have you smoked in the past 12 months: No Aproximately how many cigarettes per day: 0 - Alcohol/Substance Use Hx Alcohol Use: No History of Substance Use: reports: None - Social History ADL: Independent History of Recent Travel: No Home Medications - Allergies Allergies/Adverse Reactions: Allergies Allergy/AdvReac Type Severity Reaction Status Date / Time Milk Containing Products Allergy Severe Difficulty Verified 04/16/18 15:10 [Milk Products] Breathing SEAFOOD Allergy Severe Difficulty Uncoded 04/16/18 15:10 Breathing - Home Medications Home Medications: Ambulatory Orders Levothyroxine [Synthroid -] 50 mcg PO DAILY 03/24/18 Levothyroxine [Synthroid -] 112 mcg PO DAILY 03/24/18 Sennosides [Senna] 8.6 mg PO BID #10 tablet 04/17/18 Family Medical History Family History: Unable to Obtain Review of Systems Findings/Remarks: contractions q 5mins - Review of Systems Constitutional: reports: No Symptoms Eyes: reports: No Symptoms HENT: reports: No Symptoms Neck: reports: No Symptoms Cardiovascular: reports: No Symptoms Respiratory: reports: No Symptoms Gastrointestinal: reports: No Symptoms Genitourinary: reports: No Symptoms Breasts: reports: No Symptoms Reported Musculoskeletal: reports: No Symptoms Integumentary: reports: No Symptoms Neurological: reports: No Symptoms Endocrine: reports: No Symptoms Hematology/Lymphatic: reports: No Symptoms Psychiatric: reports: No Symptoms Physical Exam - Maternity Vital Signs: Vital Signs Temperature 98.7 F 03/10/20 00:35 Pulse Rate 78 03/10/20 05:00 Respiratory Rate 18 03/10/20 05:00 Blood Pressure 141/82 03/10/20 05:00 O2 Sat by Pulse Oximetry (%) 100 03/10/20 05:00 Constitutional: Yes: Well Nourished HENT: Yes: Atraumatic Neck: Yes: Supple Cardiovascular: Yes: Regular Rate and Rhythm Breast(s): Yes: Other - Abdominal Exam/OB Number of Fetuses: Single Presentation: Vertex Contractions: Yes Regularity: Regular Intensity: Moderate Monitor Mode: External Heart Rate (range): 135 Category: I Accelerations: Uniform Decelerations: None - Vaginal Exam/OB Vaginal Bleeding: Bloody Show Speculum Exam: No Dilatation (cm): 7 Effacement (%): 70 Amniotic Fluid: Yes: Clear Station: -2 - Physical Exam Musculoskeletal: Yes: WNL Extremities: Yes: WNL Edema: Yes Edema: LLE: Trace, RLE: Trace Integumentary: Yes: WNL ...Motor Strength: WNL Psychiatric: Yes: Alert, Oriented - Labs Lab Results: CBC, BMP 03/10/20 03:45 03/10/20 03:45 Imaging - Results Ultrasound: Report Reviewed Assessment/Plan 24 y/o @ 39+wks, hypothyroid on levothyroxine, active labor S/P incidental AROM, asynclitic and internal digital rotation attempted, reassuring status, declined pain control, mild anemia. Labile BP in normal to mild range, asymptomatic, slightly elevated P/C. Presentation consistent with PEC w/o severe features. -Expectant management -Anticipate VD -Monitor BP and manage accordingly
--- NOTE | 2020-03-10 07:07 | PN ---
Ante-Partal Exam - Subjective Subjective: Patient evaluated for variable decels Vital Signs: Vital Signs Temperature 98.6 F 03/10/20 06:00 Pulse Rate 78 03/10/20 05:00 Respiratory Rate 18 03/10/20 05:00 Blood Pressure 141/82 03/10/20 05:00 O2 Sat by Pulse Oximetry (%) 100 03/10/20 05:00 Bleeding: Yes (bloody show) Bleeding Description: Mild Headache: No Visual changes: No Right upper quadrant pain: No - Contractions Contractions: Yes Regularity: Regular Intensity: Mod/Strong Monitor Mode: External - Exam during Labor Heart Rate: 130 Variability: Minimal, Moderate Category: II Monitor Accelerations: Present Monitor Decelerations: Variable Exam: Vaginal Dilatation (cm): 8 Effacement (%): 80 Amniotic Fluid: Clear Station: -2 Remarks: asynclitic and internal digital rotation attempted - Assessment/Plan Assessment/Plan: 24 y/o @ 39+wks, active labor, S/P AROM, FHT cat II due to variable decels, BP is labile. Patient counseled regarding situation and not ready to initiate maternal expulsive efforts yet. All questions answered -Passive descent -Continuous monitoring -Re-evaluate accordingly -Consider amnio-infusion as required
[2020-03-10] MEDS ORDERED: OXYTOCIN 20 UNITS in 0.9% NS 20 UNIT/1,000 ML INFUS.BAG IV ONE ×2 (07:20→09:30)
[2020-03-10] MEDS: D5W-LR W/ 20 UNITS OXYTOCIN 20 UNIT/1,000 ML INFUS.BAG IV SCH (07:40)
[2020-03-10] MEDS ORDERED: BENZOCAINE 20% 57 GM BOTTLE TP PRN (07:56)
[2020-03-10] MEDS ORDERED: WITCH HAZEL 50% (TUCKS) 40 PAD/JAR PAD TP PRN (07:56)
[2020-03-10] MEDS ORDERED: BENZOCAINE 28 GM HEMORRHOIDAL OINTMENT TP PRN (07:56)
[2020-03-10] MEDS ORDERED: BISACODYL 10 MG SUPP.RECT RC PRN (07:56)
--- NOTE | 2020-03-10 07:56 | PN ---
Delivery - Delivery Type of Anesthesia: None Episiotomy/Laceration: None EBL (cc): 250 Delivery, Single - Stages of Labor Placenta: Yes: Spontaneous - Condition of Plan Manager/Director Of Managed Services Present: No Gender: Male Position: OA (restituted to LEONID) - Feeding Plan Initial Plan: Elected not to breastfeed exclusively throughout hospitalization Remarks - Remarks Remarks: delivered with maternal expulsive efforts, OA. No nuchal cord but Cord loop noted beside head. Restituted to LEONID and cord in front of anterior shoulder. Shoulders delivered w/o difficulty followed by rest of the body. Umbilical cord clamped and cut after delayed and sample for blood obtained. placed onto mother's chest. Placenta delivered spontaneously and intact, 3 vc. Exam revealed excellent hemostasis, firm fundus, and no lacertions. 1000mcg misoprostol administered UT prophylactically. Sponge/instrument count correct x 2 and confirmed by nursing
[2020-03-10] MEDS ORDERED: MISOPROSTOL 100 MCG TABLET NR ONE (07:58)
--- NOTE | 2020-03-10 07:59 | PD.OB.PROG ---
Past Medical History - Primary Care Physician Documenting Provider Type: Laborist - Admission Chief Complaint: labor pain History Source: Patient Limitations to Obtaining History: No Limitations - Nursing Documentation Maternal Triage Index: Maternal Triage Index ( Priority 3, Prompt MFTI) Maternal Triage Index ( Priority 3, Prompt MFTI) Hemorrhage Risk Assessment: Risk Level Low Risk High Level Risk Factors for None Hemorrhage Medium Level Risk Factors for None of the above Hemorrhage Low Level Risk Factors for No previous uterine incis,Aguilar Pregnaancy,No Hemorrhage known bleeding Nursing Documentation Reviewed: Yes - Past Medical History CASINO FLOOR RUNNER: Denies/None Cardio/Vascular: Denies/None Pulmonary: Denies/None Gastrointestinal: Denies/None Hepatobiliary: Denies/None Renal/: Denies/None ...: 3 ...Para: 2 ...Term: 2 ...Living Children: 2 ...LMP: 06/06/19 ... Weeks Gestation by Dates: 39.5 ...EDC by Dates: 03/12/20 ...EDC by Sono: 03/12/20 Heme/Onc: Denies/None Infectious Disease: Denies/None Psych: Denies/None Musculoskeletal: Denies/None Rheumatology: Denies/None ENT: Denies/None Endocrine: Denies/None Dermatology: Denies/None - Past Surgical History Past Surgical History: Yes: None - Advance Directives Advance Directives: Yes: Living Will - Smoking History Smoking history: Never smoked Have you smoked in the past 12 months: No Aproximately how many cigarettes per day: 0 - Alcohol/Substance Use Hx Alcohol Use: No History of Substance Use: reports: None - Social History Usual Living Arrangement: With Significant Other Do you think of yourself as: Straight/Heterosexual ADL: Independent History of Recent Travel: No Review of Systems - Review of Systems Constitutional: reports: No Symptoms Eyes: reports: No Symptoms HENT: reports: No Symptoms Neck: reports: No Symptoms Cardiovascular: reports: No Symptoms Respiratory: reports: No Symptoms Gastrointestinal: reports: No Symptoms Genitourinary: reports: No Symptoms Breasts: reports: No Symptoms Reported Musculoskeletal: reports: No Symptoms Integumentary: reports: No Symptoms Neurological: reports: No Symptoms Endocrine: reports: No Symptoms Hematology/Lymphatic: reports: No Symptoms Psychiatric: reports: No Symptoms Physical Exam - Obstetrical Vital Signs: Vital Signs Temperature 98.6 F 03/10/20 06:00 Pulse Rate 78 03/10/20 05:00 Respiratory Rate 18 03/10/20 05:00 Blood Pressure 141/82 03/10/20 05:00 O2 Sat by Pulse Oximetry (%) 100 03/10/20 05:00 Constitutional: Yes: Well Nourished, No Distress, Calm Eyes: Yes: WNL, Conjunctiva Clear, EOM Intact HENT: Yes: WNL, Atraumatic, Normocephalic Neck: Yes: WNL, Supple, Trachea Midline Cardiovascular: Yes: WNL, Regular Rate and Rhythm Lungs: Clear to auscultation Breast(s): Yes: WNL - Abdominal Exam/OB Fundal Height: 38 Number of Fetuses: Single Presentation: Vertex Contractions: Yes Regularity: Regular Intensity: Mild/Mod Monitor Mode: External Heart Rate Location: [facility] Category: I Accelerations: Uniform Decelerations: None - Vaginal Exam/OB Vaginal Exam Deferred: No Vaginal Bleeding: No Speculum Exam: No Dilatation (cm): 4 Effacement (%): 60 Amniotic Membrane Status: Intact Presentation: Vertex/Position Station: -1 - Physical Exam Musculoskeletal: Yes: WNL Extremities: Yes: WNL Integumentary: Yes: WNL ...Motor Strength: WNL Psychiatric: Yes: WNL, Alert, Oriented - Labs Lab Results: CBC, BMP 03/10/20 03:45 03/10/20 03:45 Assessment/Plan early labor, , will discuss with dr harden for possible admission
[2020-03-10] MEDS: FERROUS SO4 325 MG TABLET (FP) PO SCH ×3 (08:44→17:19)
[2020-03-10] MEDS: ACETAMINOPHEN 325 MG TABLET (FP) PO PRN ×2 (08:53→12:37)
[2020-03-10] MEDS: IBUPROFEN 600 MG TABLET (FP) PO PRN ×2 (08:53→15:01)
[2020-03-10] MEDS: LABETALOL HCL 200 MG TABLET (FP) PO SCH ×2 (11:34→21:41)
[2020-03-11] MEDS: IBUPROFEN 600 MG TABLET (FP) PO PRN ×2 (03:22→10:30)
[2020-03-11] MEDS: ACETAMINOPHEN 325 MG TABLET (FP) PO PRN ×2 (03:23→10:30)
[2020-03-11] MEDS ORDERED: LEVOTHYROXINE NA 50 MCG TABLET (FP) PO SCH (07:00)
--- NOTE | 2020-03-11 07:29 | DS ---
Physical Exam-ASSISTANT SUPERINTENDENT Vital Signs: Vital Signs Temperature 98 F 03/11/20 05:46 Pulse Rate 81 03/11/20 05:46 Respiratory Rate 18 03/11/20 05:46 Blood Pressure 115/51 L 03/11/20 05:46 O2 Sat by Pulse Oximetry (%) 100 03/10/20 09:40 Constitutional: Yes: Well Nourished, No Distress, Calm Eyes: Yes: WNL, Conjunctiva Clear, EOM Intact HENT: Yes: WNL, Atraumatic, Normocephalic Neck: Yes: WNL, Supple, Trachea Midline Cardiovascular: Yes: WNL, Regular Rate and Rhythm Respiratory: Yes: WNL, Regular, CTA Bilaterally Gastrointestinal: Yes: WNL ...Rectal Exam: Yes: WNL Renal/: Yes: WNL ....Post : Yes: Uterus firm, Uterus non-tender, Slight lochia rubra Breast(s): Yes: WNL Musculoskeletal: Yes: WNL Extremities: Yes: WNL Edema: No Integumentary: Yes: WNL Neurological: Yes: WNL, Alert, Oriented ...Motor Strength: WNL Psychiatric: Yes: WNL, Alert, Oriented Labs: CBC, BMP 03/10/20 03:45 03/10/20 03:45 Delivery - Delivery Type of Anesthesia: None Episiotomy/Laceration: None EBL (cc): 250 Delivery, Single - Stages of Labor Date 1st Stage Initiatied: 03/10/20 Time 1st Stage Initiated: 02:00 Date 2nd Stage Initiated: 03/10/20 Time 2nd Stage Initiated: 07:23 Date of Delivery: 03/10/20 Time of Delivery: 07:32 Time Placenta Delivered: 07:38 Placenta: Yes: Spontaneous - Condition of Infant Front Office Manager/Nuclear Powerplant Supervisor Present: [place]: Juan Olivares Gender: Male Weight: 6 lb 13 oz Position: OA Total Hours ROM (Hrs/Mins): 1hrs/8mins - 1 Minute Total Score: 9 5 Minutes Total Score: 9 - [place] Feeding Plan Initial Plan: Elected not to breastfeed exclusively throughout hospitalization Discharge Summary Reason For Visit: LABOR ADMIT Procedures: Principal: Health Concerns: hypothyroidism Plan of Treatment: follow up [facility] 4 weeks cont synthyroid Condition: Stable - Instructions Diet, Activity, Other Instructions: return to regular activity and diet as tolerated, follow up with MD within a week of discharge for Blood Pressure check. Referrals: Yael High CNM [Certified Nurse Encoding Machine Operator] - Faraz Deleon MD [Family Provider] - Disposition: HOME - Home Medications Comprehensive Discharge Medication List: Ambulatory Orders Levothyroxine [Synthroid -] 50 mcg PO DAILY 03/24/18 Levothyroxine [Synthroid -] 112 mcg PO DAILY 03/24/18 Sennosides [Senna] 8.6 mg PO BID #10 tablet 04/17/18 Acetaminophen [Tylenol] 325 mg PO Q6H PRN #30 capsule MDD 5 03/10/20 Ferrous Sulfate [Feosol] 325 mg PO DAILY #30 tablet 03/10/20 Ibuprofen 600 mg PO Q6H PRN #30 tablet 03/10/20
[2020-03-11 08:25] LABS: BASO % 0.2 % (0-2.0); EOS % 1.9 % (0-4.5); HEMOGLOBIN 8.1 GM/dL (10.7-15.3); LYMPH % 27.2 % (8-40); MCH 23.5 pg (25.7-33.7); MCHC 32.5 g/dl (32.0-36.0); MEAN CELL VOLUME 72.3 fl (80-96); MONO % 6.3 % (3.8-10.2); NEUT % 64.4 % (42.8-82.8); PLATELET COUNT 270 K/MM3 (134-434); RBC 3.45 M/mm3 (3.60-5.2); RDW 20.5 % (11.6-15.6); WHITE BLOOD COUNT 9.4 K/mm3 (4.0-10.0)
[2020-03-11] MEDS: ELECTROLYTE-148 SOLN 1,000 ML IV SCH (08:37)
[2020-03-11] MEDS: FERROUS SO4 325 MG TABLET (FP) PO SCH ×2 (08:55→12:15)
[2020-03-11] MEDS ORDERED: DIPHTH,PERTUSS(ACELL),TET 0.5 ML DISP.SYRIN IM ONE (10:00)
[2020-03-11] MEDS: LABETALOL HCL 200 MG TABLET (FP) PO SCH (10:35)
[2020-03-11 11:50] LABS: ANISOCYTOSIS 1+; MACROCYTOSIS 0
[2020-03-11] MEDS: D5W-LR W/ 20 UNITS OXYTOCIN 20 UNIT/1,000 ML INFUS.BAG IV SCH (12:29)
[2020-03-11 13:40] LABS: ADD RBC MORPHOLOGY YES
[2020-03-11 13:41] LABS: PLATELET ESTIMATE ADEQUATE
[2020-03-11 13:51] VITALS: BP 122/62; PULSE 98; TEMP 98.2
[2020-03-11] MEDS ORDERED: SENNOSIDES/DOCUSATE COMBO (SENNA PLUS) TABLET (UD) PO PRN (22:00)
== END 2020-03-11 13:05 | disposition home or self-care (01) | DRG 560 ==
LOC: JDEL 00:25 → JLDR 02:50 → J3W 09:43
PROVIDERS: ADMIT Student in an Organized Health Care Education/Training Program; ATTEND Student in an Organized Health Care Education/Training Program
PROC: 10E0XZZ Delivery of Products of Conception, External Approach (ICD-10-PCS; principal; 2020-03-10)
DX: O99.02 Anemia complicating childbirth (principal); O99.283 Endocrine, nutritional and metabolic diseases complicating pregnancy, third trimester; Z3A.39 39 weeks gestation of pregnancy; Z37.0 Single live birth
CPT/HCPCS: 36415; 59025; 59409; 80048; 82565; 82977; 83010; 84156; 84450; 84460; 84550; 85025; 85044; 85610; 85730; 86780; 86850; 86900; 86901; 90715; U0003

== ENCOUNTER 2020-04-05 16:58 | Emergency (ER) | payer OTHER ==
[2020-04-05 17:04] VITALS: BMI 33.7
[2020-04-05] MEDS ORDERED: SODIUM CHLORIDE 1,000 ML IV STA (17:57)
[2020-04-05] MEDS ORDERED: ACETAMINOPHEN 1000 MG/100 ML VIAL (NON FORMULARY) IVPB ONE (17:57)
[2020-04-05] MEDS ORDERED: ACETAMINOPHEN INJECTION 100 ML IVPB ONE (18:07)
[2020-04-05 18:43] LABS: BASO % 0.6 % (0-2.0); EOS % 2.2 % (0-4.5); HEMATOCRIT 34.5 % (32.4-45.2); HEMOGLOBIN 11.2 GM/dL (10.7-15.3); LYMPH % 26.5 % (8-40); MCH 23.4 pg (25.7-33.7); MCHC 32.5 g/dl (32.0-36.0); MEAN CELL VOLUME 72.1 fl (80-96); MONO % 5.8 % (3.8-10.2); NEUT % 64.9 % (42.8-82.8); RBC 4.79 M/mm3 (3.60-5.2); RDW 20.9 % (11.6-15.6); WHITE BLOOD COUNT 8.2 K/mm3 (4.0-10.0)
--- NOTE | 2020-04-05 18:47 | PDOC ---
History of Present Illness - General Chief Complaint: Headache Stated Complaint: HEADACHE Time Seen by Provider: 04/05/20 17:08 History Source: Patient Exam Limitations: No Limitations - History of Present Illness Initial Comments: 04/05/20 18:47 24yF w PMHx hypothyroidism, recent labor delivery 03/10 presenting w 3d intermittent mild jerel headache. Took ibuprofen w/o relief. Endorses lack of sleep and stress caring for , who is healthy. Only has vaginal spotting. Denies fever, n/v, ABD pain, dysuria. Past History - Medical History Allergies/Adverse Reactions: Allergies Allergy/AdvReac Type Severity Reaction Status Date / Time Milk Containing Products Allergy Severe Difficulty Verified 04/05/20 16:59 [Milk Products] Breathing SEAFOOD Allergy Severe Difficulty Uncoded 04/05/20 16:59 Breathing Home Medications: Ambulatory Orders Levothyroxine [Synthroid -] 50 mcg PO DAILY 03/24/18 Levothyroxine [Synthroid -] 112 mcg PO DAILY 03/24/18 Sennosides [Senna] 8.6 mg PO BID #10 tablet 04/17/18 Acetaminophen [Tylenol] 325 mg PO Q6H PRN #30 capsule MDD 5 03/10/20 Ferrous Sulfate [Feosol] 325 mg PO DAILY #30 tablet 03/10/20 Ibuprofen 600 mg PO Q6H PRN #30 tablet 03/10/20 Ferrous Sulfate [Feosol] 325 mg PO DAILY #30 tablet 03/11/20 Ibuprofen 600 mg PO Q6H PRN #30 tablet 03/11/20 Asthma: No Cancer: No Cardiac Disorders: No COPD: No DVT: No Diabetes: No HTN: No Seizures: No Thyroid Disease: Yes (Hypothyroidism) - Reproductive History Is Patient Now?: No (#): 1 Para: 0 - Immunization History Immunization Up to Date: Yes - Psycho-Social/Smoking History Smoking Status: No Smoking History: Never smoked Have you smoked in the past 12 months: No Number of Cigarettes Smoked Daily: 0 - Substance Abuse Hx (Audit-C & DAST Scrn) How often the patient has a drink containing alcohol: Never Score: In Men: 4 or > Positive; In Women: 3 or > Positive: 0 Screen Result (Pos requires Nsg. Audit-10AR): Negative In the last yr the pt used illegal drug/Rx for NonMed reason: No Score: Yes response is considered Positive: 0 Screen Result (Positive result requires Nsg. DAST-10): Negative Review of Systems - Review of Systems Constitutional: No: Chills, Fever HEENTM: No: Eye Pain, Nose Congestion Respiratory: No: Cough, Shortness of Breath Cardiac (ROS): No: Chest Pain, Palpitations ABD/GI: No: Constipated, Diarrhea, Nausea, Vomiting : No: Burning, Dysuria Musculoskeletal: No: Back Pain, Joint Pain Integumentary: No: Bruising, Flushing Neurological: Yes: Headache. No: Seizure Psychiatric: No: Anxiety, Depression Endocrine: No: Intolerance to Cold, Intolerance to Heat Hematologic/Lymphatic: No: Anemia, Blood Clots *Physical Exam - Vital Signs Last Vital Signs Temp Pulse Resp BP Pulse Ox 98.9 F 100 H 20 140/68 100 04/05/20 17:00 04/05/20 17:00 04/05/20 17:00 04/05/20 17:00 04/05/20 17:00 - Physical Exam General Appearance: Yes: Nourished, Appropriately Dressed, Mild Distress HEENT: positive: EOMI, ASHLEY, Normal Voice, Hearing Grossly Normal. negative: Scleral Icterus (R), Scleral Icterus (L) Respiratory/Chest: positive: Lungs Clear, Normal Breath Sounds. negative: Chest Tender, Respiratory Distress Cardiovascular: positive: Regular Rhythm, Regular Rate, S1, S2. negative: Murmur Gastrointestinal/Abdominal: positive: Normal Bowel Sounds, Soft, Distended. negative: Tender, Organomegaly Integumentary: positive: Normal Color, Warm Neurologic: positive: Fully Oriented, Alert, Normal Mood/Affect, Normal Response, Responsive. negative: Facial Droop, Confused, Disoriented ED Treatment Course - LABORATORY CBC & Chemistry Diagram: 04/05/20 18:25 04/05/20 18:25 - Medications Given in the ED: ED Medications Discontinued Medications Generic Name Dose Route Start Last Admin Trade Name Freq PRN Reason Stop Dose Admin Acetaminophen 1,000 mg 04/05/20 17:57 04/05/20 18:05 Ofirmev Injection - IVPB 04/05/20 17:58 1,000 mg ONCE ONE Administration Medical Decision Making - Medical Decision Making 04/05/20 19:09 24yF w PMHx hypothyroidism, recent labor delivery 03/10 presenting w 3d intermittent mild jerel headache. No evidence of intracranial bleed (not worst headache) vs preeclampsia (not hypertensive) Given 1L NS, tylenol w relief DC home w supportive care, PCP f/u Discharge - Discharge Information Problems reviewed: Yes Clinical Impression/Diagnosis: Headache Qualifiers: Headache type: unspecified Headache chronicity pattern: acute headache Intractability: not intractable Qualified Code(s): R51 - Headache Condition: Improved Disposition: HOME - Follow up/Referral - Patient Discharge Instructions Patient Printed Discharge Instructions: DI for Headache Additional Instructions: Alternate between 1000mg tylenol and 600mg ibuprofen every 3 hours if you have pain. You can only take each medication every 6 hours Drink lots of water and sleep when you can Follow up with your primary care doctor - Post Discharge Activity
[2020-04-05] MEDS ORDERED: METOCLOPRAMIDE HCL INJECTION 10 MG/2 ML VIAL IVPB ONE (18:59)
[2020-04-05 19:14] LABS: ALBUMIN 3.9 g/dl (3.4-5.0); BILIRUBIN,TOTAL 0.4 mg/dL (0.2-1); BLOOD UREA NITROGEN 10.1 mg/dL (7-18); CALCIUM 9.2 mg/dL (8.5-10.1); CREATININE 0.6 mg/dL (0.55-1.3); POTASSIUM 4.6 mmol/L (3.5-5.1); TOT PROT 8.9 g/dl (6.4-8.2)
[2020-04-05] MEDS ORDERED: METOCLOPRAMIDE HCL INJECTION 10 MG/2 ML VIAL ONE (19:35)
[2020-04-05 19:56] LABS: ANISOCYTOSIS 2+; MACROCYTOSIS 0; PLATELET ESTIMATE NORMAL
[2020-04-05 19:57] LABS: MEAN PLT VOLUME 8.3 fl (7.5-11.1); PLATELET COUNT 364 K/MM3 (134-434)
--- NOTE | 2020-04-05 20:05 | PDOC ---
Documentation entered by Nguyễn Almanza SCRIBE, acting as scribe for Marcia Hercules MD. Marcia Hercules MD: This documentation has been prepared by the Cami huizar Xhesika, SCRIBE, under my direction and personally reviewed by me in its entirety. I confirm that the documentation accurately reflects all work, treatment, procedures, and medical decision making performed by me. Attending Attestation - Resident Resident Name: GhassanDb - ED Attending Attestation I have performed the following: I have examined & evaluated the patient, The case was reviewed & discussed with the resident, I agree w/resident's findings & plan, Exceptions are as noted - HPI HPI: 04/05/20 18:54 The patient is a 24y/o F with a pmh of hypothyroidism and recent delivery (03/10/20) who presents to the the ED with headache x3days. Pt states she has been taking Ibuprofen with no relief. Pt states she recently gave and reports she has been stressed taking care of . Pt states she has been breast feeding. Pt reports mild vaginal spotting, no discharge, dysuria, hematuria, chest pain, SOB, leg swelling, n/t/w focally, imbalance, etc. The patient denies chest pain, shortness of breath. Denies fever, chills, cough, nausea, vomiting, diarrhea and constipation. Denies dysuria, frequency, urgency. Allergies: NKDA, Milk containing products, seafood. - Physicial Exam PE: 04/05/20 19:53 GENERAL: very well-appearing, A/Ox4, no distress, answers questions appropriately, pleasant young adult female HEENT: PERRLA, EOMI, moist mucous membranes NECK/BACK: no midline ttp, no spinal step-off or deformity, no hematoma, full ROM, neck supple CARDIOVASCULAR: regular rate/rhythm, no MGR, strong peripheral pulses, capillary refill <2 seconds, extremities wwp, no edema LUNGS/RESPIRATORY: no respiratory distress, CTAB GI/ABDOMEN: symmetric [id number], normoactive BS, soft, no ttp, no midline pulsatile masses : no CVA tenderness MSK/EXTREMITIES: no muscle atrophy, no acute deformity SKIN: warm and dry, no pallor, no jaundice, no rash, no pathologic-appearing bruising, no skin breakdown, no cuts, no lesions NEUROLOGICAL: GCS 15, CN II-XII grossly intact, 5/5 strength proximally and distally, no facial droop, normal gait, normal [id number], no truncal ataxia, no nystagmus - Medical Decision Making 04/05/20 19:55 Adult female Pt p/w headache, no reported mechanism for injury, no new red flag symptoms (see HPI). SMITH not worse on awakening in the AM, no B symptoms, trauma, fever, syncope, vision loss, n/t/w focally, sudden onset, etc. Initial Vital Signs Temp Pulse Resp BP Pulse Ox 98.9 F 100 H 20 140/68 100 04/05/20 17:00 04/05/20 17:00 04/05/20 17:00 04/05/20 17:00 04/05/20 17:00 DDX IBNLT most likely primary SMITH syndrome (tension/migraine/cluster/other incl. primary cough SMITH, exertional SMITH, postcoital SMITH), very unlikely more serious etiology as patient has no headache red flags. Provider Orders Category Date Time Status Insert Saline Lock NOW Care 04/05/20 17:57 Completed CBC WITH DIFFERENTIAL Stat Lab 04/05/20 18:25 Completed COMP METABOLIC PANEL Stat Lab 04/05/20 18:25 Completed MAGNESIUM Stat Lab 04/05/20 18:25 Completed RBC MORPH Stat Lab 04/05/20 18:25 Completed Acetaminophen Injection [Ofirmev Injection -] Medication 04/05/20 17:57 Discontinued 1,000 mg IVPB ONCE ONE Acetaminophen Injection [Ofirmev Injection -] 100 ml Medication 04/05/20 18:07 Discontinued IVPB UD Metoclopramide HCl Injection [Reglan Injection -] Medication 04/05/20 19:35 Discontinued 10 mg .ROUTE .STK-MED ONE Metoclopramide HCl Injection [Reglan Injection -] Medication 04/05/20 18:59 Discontinued 10 mg IVPB ONCE ONE Sodium Chloride [Normal Saline -] 1,000 ml Medication 04/05/20 17:57 Discontinued IV ASDIR Medications Discontinued Medications Generic Name Dose Route Start Last Admin Trade Name Freq PRN Reason Stop Dose Admin Acetaminophen 1,000 mg 04/05/20 17:57 04/05/20 18:05 Ofirmev Injection - IVPB 04/05/20 17:58 1,000 mg ONCE ONE Administration Sodium Chloride 1,000 mls @ 1,000 mls/hr 04/05/20 17:57 04/05/20 17:55 Normal Saline - IV 04/05/20 18:56 1,000 mls/hr ASDIR STA Administration Acetaminophen Confirm 04/05/20 18:07 Ofirmev Injection - Administered 04/05/20 18:08 Dose 100 mls @ ud IVPB .STK-MED ONE Metoclopramide HCl 10 mg 04/05/20 18:59 Reglan Injection - IVPB 04/05/20 19:00 ONCE ONE Metoclopramide HCl Confirm 04/05/20 19:35 Reglan Injection - Administered 04/05/20 19:36 Dose 10 mg .ROUTE .STK-MED ONE Lab Results WBC 8.2 K/mm3 (4.0-10.0) 04/05/20 18:25 RBC 4.79 M/mm3 (3.60-5.2) 04/05/20 18:25 Hgb 11.2 GM/dL (10.7-15.3) 04/05/20 18:25 Hct 34.5 % (32.4-45.2) D 04/05/20 18:25 MCV 72.1 fl (80-96) L 04/05/20 18:25 MCH 23.4 pg (25.7-33.7) L 04/05/20 18:25 MCHC 32.5 g/dl (32.0-36.0) 04/05/20 18:25 RDW 20.9 % (11.6-15.6) H 04/05/20 18:25 Plt Count 364 K/MM3 (134-434) D 04/05/20 18:25 MPV 8.3 fl (7.5-11.1) 04/05/20 18:25 Absolute Neuts (auto) 5.3 K/mm3 (1.5-8.0) 04/05/20 18:25 Neutrophils % 64.9 % (42.8-82.8) 04/05/20 18:25 Lymphocytes % 26.5 % (8-40) 04/05/20 18:25 Monocytes % 5.8 % (3.8-10.2) 04/05/20 18:25 Eosinophils % 2.2 % (0-4.5) 04/05/20 18:25 Basophils % 0.6 % (0-2.0) 04/05/20 18:25 Nucleated RBC % 0 % (0-0) 04/05/20 18:25 Hypochromia 0 04/05/20 18:25 Platelet Estimate Normal 04/05/20 18:25 Platelet Comment No clumping noted 04/05/20 18:25 Polychromasia 3+ 04/05/20 18:25 Poikilocytosis 1+ 04/05/20 18:25 Anisocytosis 2+ 04/05/20 18:25 Microcytosis 2+ 04/05/20 18:25 Macrocytosis 0 04/05/20 18:25 Sodium 138 mmol/L (136-145) 04/05/20 18:25 Potassium 4.6 mmol/L (3.5-5.1) 04/05/20 18:25 Chloride 106 mmol/L (98-107) 04/05/20 18:25 Carbon Dioxide 21 mmol/L (21-32) 04/05/20 18:25 Anion Gap 11 MMOL/L (8-16) 04/05/20 18:25 BUN 10.1 mg/dL (7-18) 04/05/20 18:25 Creatinine 0.6 mg/dL (0.55-1.3) 04/05/20 18:25 Est GFR (CKD-EPI)AfAm 145.80 04/05/20 18:25 Est GFR (CKD-EPI)NonAf 125.80 04/05/20 18:25 Random Glucose 84 mg/dL (74-106) 04/05/20 18:25 Calcium 9.2 mg/dL (8.5-10.1) 04/05/20 18:25 Magnesium 2.0 mg/dL (1.8-2.4) 04/05/20 18:25 Total Bilirubin 0.4 mg/dL (0.2-1) 04/05/20 18:25 AST 73 U/L (15-37) H 04/05/20 18:25 ALT 68 U/L (13-61) H 04/05/20 18:25 Alkaline Phosphatase 96 U/L (45-117) 04/05/20 18:25 Total Protein 8.9 g/dl (6.4-8.2) H 04/05/20 18:25 Albumin 3.9 g/dl (3.4-5.0) 04/05/20 18:25 Patient feels much better after medications. She is appropriate for discharge home with close outpatient f/u. She is comfortable with this plan. Specific return precautions are discussed. Dispo per resident note. Discharge - Discharge Information Problems reviewed: Yes Clinical Impression/Diagnosis: Headache Qualifiers: Headache type: unspecified Headache chronicity pattern: acute headache In tractability: not intractable Qualified Code(s): R51 - Headache Condition: Improved Disposition: HOME - Admission No - Follow up/Referral - Patient Discharge Instructions Patient Printed Discharge Instructions: DI for Headache Additional Instructions: Alternate between 1000mg tylenol and 600mg ibuprofen every 3 hours if you have pain. You can only take each medication every 6 hours Drink lots of water and sleep when you can Follow up with your primary care doctor - Post Discharge Activity
[2020-04-05 20:18] VITALS: BP 126/75; PULSE 82; TEMP 99
== END 2020-04-05 20:18 | disposition home or self-care (01) ==
LOC: JER 16:58
PROC: 3E0333Z Introduction of Anti-inflammatory into Peripheral Vein, Percutaneous Approach (ICD-10-PCS; principal; 2020-04-05)
PROC: 3E0337Z Introduction of Electrolytic and Water Balance Substance into Peripheral Vein, Percutaneous Approach (ICD-10-PCS; 2020-04-05)
DX: R51 Headache (principal)
CPT/HCPCS: 36415; 80053; 83735; 85025; 99284-25; J0131

== ENCOUNTER 2020-04-17 22:38 | Emergency (ER) | payer OTHER ==
[2020-04-17 22:51] VITALS: BMI 33.7
[2020-04-18] MEDS ORDERED: ACETAMINOPHEN 1000 MG/100 ML VIAL (NON FORMULARY) IVPB ONE (00:57)
[2020-04-18 01:09] LABS: BASO % 0.4 % (0-2.0); EOS % 1.8 % (0-4.5); HEMATOCRIT 31.4 % (32.4-45.2); HEMOGLOBIN 10.3 GM/dL (10.7-15.3); LYMPH % 30.8 % (8-40); MCH 23.8 pg (25.7-33.7); MCHC 32.8 g/dl (32.0-36.0); MEAN CELL VOLUME 72.7 fl (80-96); MEAN PLT VOLUME 7.7 fl (7.5-11.1); MONO % 5.7 % (3.8-10.2); NEUT % 61.3 % (42.8-82.8); PLATELET COUNT 349 K/MM3 (134-434); RBC 4.31 M/mm3 (3.60-5.2); RDW 20.8 % (11.6-15.6); WHITE BLOOD COUNT 7.3 K/mm3 (4.0-10.0)
[2020-04-18 01:20] LABS: ALBUMIN 3.7 g/dl (3.4-5.0); BILIRUBIN,TOTAL 0.3 mg/dL (0.2-1); BLOOD UREA NITROGEN 17.4 mg/dL (7-18); CALCIUM 8.8 mg/dL (8.5-10.1); CREATININE 0.6 mg/dL (0.55-1.3); POTASSIUM 4.7 mmol/L (3.5-5.1); TOT PROT 8.5 g/dl (6.4-8.2)
[2020-04-18] MEDS ORDERED: ACETAMINOPHEN INJECTION 100 ML IVPB ONE (01:41)
--- NOTE | 2020-04-18 01:49 | PDOC ---
Documentation entered by Conor Sanchez SCRIBE, acting as scribe for Anaid Alvarado MD. Anaid Alvarado MD: This documentation has been prepared by the Laura huizar Angel, SCRIBE, under my direction and personally reviewed by me in its entirety. I confirm that the documentation accurately reflects all work, treatment, procedures, and medical decision making performed by me. Attending Attestation - Resident Resident Name: Sebastian Meier - ED Attending Attestation I have performed the following: I have examined & evaluated the patient, The case was reviewed & discussed with the resident, I agree w/resident's findings & plan - HPI HPI: 04/18/20 02:10 Pt comes with abdominal pain She delivered a child 6 weeks back; multipara she delivered in the past. Pt states that today she strained her abdomen when she lifted a bottle off of the floor Pt has no fever and nochills and no N/V/D She has no other complaints. - Physicial Exam PE: 04/18/20 03:29 Normal exam Pt has no flank pain No RUQ RLQ pain Pt has pain only in the left epigastrium. Pt likely has a fat hernia in that area. Pt has no rebound and no guarding and she has normal BS Pt has normal extremities. Pt has no edema - Medical Decision Making 04/18/20 01:34 Patient Name: NEVILLE AQUINO THIS IS A PRELIMINARY REPORT DATE OF SERVICE: 2020-04-18 00:42:36 IMAGES: 59 EXAM: TRANSVAGINAL ULTRASOUND US and pelvic duplex HISTORY: Left lower quadrant pain. Rule out torsion. Recent delivery one month ago COMPARISON: None. FINDINGS: Endovaginal pelvic ultrasound:Uterus is anteverted and measures 10.2centimeters in length. The endometrium is 1millimeters in thickness. There are no fibroids. The right ovary measures 3.7centimeters in length, appears normal and demonstrates normal flow. Left ovary measures 2.2centimeters in length, appears normal and demonstrates normal flow. There is no significant free fluid. Pelvic duplex: There is normal arterial and venous flow in both ovaries. IMPRESSION: Normal exam. 04/18/20 03:31 Pt understands that we didn't geta CT scan of the abd?pelvis as it is a lot of radiation. At this time she has no fever or obstruction of lab abnormalities Discharge - Discharge Information Problems reviewed: Yes Clinical Impression/Diagnosis: Abdominal pain Qualifiers: Abdominal location: generalized Qualified Code(s): R10.84 - Generalized abdominal pain Condition: Improved Disposition: HOME - Follow up/Referral Referrals: Glen Pimentel MD [Primary Care Provider] - - Patient Discharge Instructions Additional Instructions: You were seen in the ER for abdominal pain. We did a physical exam, labs, and a transvaginal ultrasound, which did not show any acute problem. Your labs showed you were a little bit anemic and you liver tests were a little high. You should follow up about these results and about your pain with your primary doctor within three days. Please return to the ER for continued or worsening symptoms, blood in your urine or stool, abnormal discharge, fever, or any other reason. - Post Discharge Activity
[2020-04-18 01:51] VITALS: BP 132/86; PULSE 73; TEMP 97.6
[2020-04-18 02:36] LABS: EPI CELLS >36 /uL (0-25.1); HYALINE CASTS 2 /uL (0-3.1); PH,URINE 5.5 (5.0-8.0); URINE APPEARANCE CLEAR; URINE BACTERIA 467 /uL (0-1359); URINE BILIRUBIN NEGATIVE (NEGATIVE); URINE COLOR YELLOW; URINE GLUCOSE (UA) NEGATIVE (NEGATIVE); URINE KETONE NEGATIVE (NEGATIVE); URINE LEUK ESTERASE TRACE (NEGATIVE); URINE NITRITE NEGATIVE (NEGATIVE); URINE PROTEIN NEGATIVE (NEGATIVE); URINE RBC 3 /uL (0-23.9); URINE WBC 9 /uL (0-25.8)
--- NOTE | 2020-04-18 02:44 | PDOC ---
History of Present Illness - General Chief Complaint: Pain Stated Complaint: ABD PAIN Time Seen by Provider: 04/17/20 23:37 - History of Present Illness Initial Comments: 04/18/20 02:44 24yo with PMH of hypothyroidism and anemia presents 6 weeks after a vaginal delivery with left pelvic and epigastric pain for two days. Worse when carrying her baby. Denies GI, , vaginal symptoms. Denies having sex since delivery. PMH/PSH: as above Home Medications Medication Instructions Recorded Levothyroxine [Synthroid -] 50 mcg PO DAILY 03/24/18 Levothyroxine [Synthroid -] 112 mcg PO DAILY 03/24/18 Sennosides [Senna] 8.6 mg PO BID #10 tablet 04/17/18 Acetaminophen [Tylenol] 325 mg PO Q6H PRN #30 capsule MDD 5 03/10/20 Ferrous Sulfate [Feosol] 325 mg PO DAILY #30 tablet 03/10/20 Ibuprofen 600 mg PO Q6H PRN #30 tablet 03/10/20 Ferrous Sulfate [Feosol] 325 mg PO DAILY #30 tablet 03/11/20 Ibuprofen 600 mg PO Q6H PRN #30 tablet 03/11/20 Allergies Allergy/AdvReac Type Severity Reaction Status Date / Time Milk Containing Products Allergy Severe Difficulty Verified 04/05/20 16:59 [Milk Products] Breathing SEAFOOD Allergy Severe Difficulty Uncoded 04/05/20 16:59 Breathing ROS GENERAL/CONSTITUTIONAL: No fever or chills. No weakness. HEAD, EYES, EARS, NOSE AND THROAT: No change in vision. No ear pain or discharge. No sore throat. CARDIOVASCULAR: No chest pain or shortness of breath RESPIRATORY: No cough, wheezing, or hemoptysis. GASTROINTESTINAL: No nausea, vomiting, diarrhea or constipation. GENITOURINARY: No dysuria, frequency, or change in urination. MUSCULOSKELETAL: No joint or muscle swelling or pain. No neck or back pain. SKIN: No rash NEUROLOGIC: No headache, vertigo, loss of consciousness, or change in strength/sensation. ENDOCRINE: No increased thirst. No abnormal weight change HEMATOLOGIC/LYMPHATIC: No anemia, easy bleeding, or history of blood clots. ALLERGIC/IMMUNOLOGIC: No hives or skin allergy. PE GENERAL: Awake, alert, and fully oriented, in no acute distress HEAD: No signs of trauma, normocephalic, atraumatic EYES: PERRLA, EOMI, sclera anicteric, conjunctiva clear ENT: Auricles normal inspection, hearing grossly normal, nares patent, oropharynx clear without exudates. Moist mucosa NECK: Normal ROM, supple, no lymphadenopathy, JVD, or masses LUNGS: No distress, speaks full sentences, clear to auscultation bilaterally HEART: Regular rate and rhythm, normal S1 and S2, no murmurs, rubs or gallops, peripheral pulses normal and equal bilaterally. ABDOMEN: Soft, tender in LLQ and left epigastrum. No guarding, no rebound. No masses EXTREMITIES : Normal inspection, Normal range of motion, no edema. No clubbing or cyanosis. NEUROLOGICAL: Cranial nerves II through XII grossly intact. Normal speech, normal gait, no focal sensorimotor deficits SKIN: Warm, Dry, normal turgor, no rashes or lesions noted Vital Signs (72 hours) 04/17/20 04/18/20 22:47 01:51 Temperature 97.2 F L 97.6 F Pulse Rate 105 H Pulse Rate [ 73 Radial] Respiratory 20 20 Rate Blood Pressure 152/69 Blood Pressure 132/86 [Left Arm] O2 Sat by Pulse 100 100 Oximetry (%) MDM: 24yo with PMH of hypothyroidism and anemia presents 6 weeks after a vaginal delivery with left pelvic and epigastric pain for two days. Vitals notable for hypertension and tachycardia, likely secondary to pain. Will give tylenol and fluids and reassess. DDx includes ovarian torsion, cyst, ectopic , UTI, gastroenteritis, muscle strain. -CBC, CMP, UA/UC -transvaginal US 04/18/20 04:36 Labs notable for anemia of 10.3 (one point below baseline), elevated AST/ALT to 66/67, negative UA. TVUS negative Tachycardia resolved, less hypertensive (132/86), and pain improved. ID home Has PCP appointment on . Explained anemia and elevated AST/ALT and advised to f/u about this and about abdominal pain with PCP. Past History - Medical History Allergies/Adverse Reactions: Allergies Allergy/AdvReac Type Severity Reaction Status Date / Time Milk Containing Products Allergy Severe Difficulty Verified 04/05/20 16:59 [Milk Products] Breathing SEAFOOD Allergy Severe Difficulty Uncoded 04/05/20 16:59 Breathing Home Medications: Ambulatory Orders Levothyroxine [Synthroid -] 50 mcg PO DAILY 03/24/18 Levothyroxine [Synthroid -] 112 mcg PO DAILY 03/24/18 Sennosides [Senna] 8.6 mg PO BID #10 tablet 04/17/18 Acetaminophen [Tylenol] 325 mg PO Q6H PRN #30 capsule MDD 5 03/10/20 Ferrous Sulfate [Feosol] 325 mg PO DAILY #30 tablet 03/10/20 Ibuprofen 600 mg PO Q6H PRN #30 tablet 03/10/20 Ferrous Sulfate [Feosol] 325 mg PO DAILY #30 tablet 03/11/20 Ibuprofen 600 mg PO Q6H PRN #30 tablet 03/11/20 Asthma: No Cancer: No Cardiac Disorders: No COPD: No DVT: No Diabetes: No HTN: No Seizures: No Thyroid Disease: Yes (Hypothyroidism) - Surgical History Appendectomy: Yes - Reproductive History Is Patient Now?: No (#): 1 Para: 0 - Immunization History Immunization Up to Date: Yes - Psycho-Social/Smoking History Smoking Status: No Smoking History: Never smoked Have you smoked in the past 12 months: No Number of Cigarettes Smoked Daily: 0 - Substance Abuse Hx (Audit-C & DAST Scrn) How often the patient has a drink containing alcohol: Never Score: In Men: 4 or > Positive; In Women: 3 or > Positive: 0 Screen Result (Pos requires Nsg. Audit-10AR): Negative *Physical Exam - Vital Signs Last Vital Signs Temp Pulse Resp BP Pulse Ox 97.6 F 73 20 132/86 100 04/18/20 01:51 04/18/20 01:51 04/18/20 01:51 04/18/20 01:51 04/18/20 01:51 ED Treatment Course - LABORATORY CBC & Chemistry Diagram: 04/18/20 00:35 04/18/20 00:35 - ADDITIONAL ORDERS Additional order review: Laboratory Results 04/18/20 04/18/20 04/18/20 02:00 00:35 00:35 Sodium 141 Potassium 4.7 Chloride 109 H Carbon Dioxide 24 Anion Gap 8 BUN 17.4 Creatinine 0.6 Est GFR (CKD-EPI)AfAm 145.80 Est GFR (CKD-EPI)NonAf 125.80 Random Glucose 103 Calcium 8.8 Total Bilirubin 0.3 AST 66 H ALT 67 H Alkaline Phosphatase 86 Total Protein 8.5 H Albumin 3.7 Serum , Qual Negative Urine Color Yellow Urine Appearance Clear Urine pH 5.5 Ur Specific [place] 1.028 Urine Protein Negative Urine Glucose (UA) Negative Urine Ketones Negative Urine Blood Negative Urine Nitrite Negative Urine Bilirubin Negative Urine Urobilinogen 1.0 Ur Leukocyte Esterase Trace Urine WBC (Auto) 9 Urine RBC (Auto) 3 Urine Casts (Auto) 2 U Epithel Cells (Auto) >36 Urine Bacteria (Auto) 467 04/18/20 00:35 RBC 4.31 MCV 72.7 L MCHC 32.8 RDW 20.8 H MPV 7.7 Neutrophils % 61.3 Lymphocytes % 30.8 Monocytes % 5.7 Eosinophils % 1.8 Basophils % 0.4 - RADIOLOGY Radiology Studies Ordered: Category Date Time Status TRANSVAGINAL ULTRASOUND US [US] Stat Ultrasound 04/18/20 00:25 Taken - Medications Given in the ED: ED Medications Discontinued Medications Generic Name Dose Route Start Last Admin Trade Name Freq PRN Reason Stop Dose Admin Acetaminophen 1,000 mg 04/18/20 00:57 04/18/20 01:47 Ofirmev Injection - IVPB 04/18/20 00:58 1,000 mg ONCE ONE Administration Discharge - Discharge Information Problems reviewed: Yes Clinical Impression/Diagnosis: Abdominal pain Qualifiers: Abdominal location: generalized Qualified Code(s): R10.84 - Generalized abdominal pain Condition: Improved Disposition: HOME - Follow up/Referral Referrals: Glen Pimentel MD [Primary Care Provider] - - Patient Discharge Instructions Additional Instructions: You were seen in the ER for abdominal pain. We did a physical exam, labs, and a transvaginal ultrasound, which did not show any acute problem. Your labs showed you were a little bit anemic and you liver tests were a little high. You should follow up about these results and about your pain with your primary doctor within three days. Please return to the ER for continued or worsening symptoms, blood in your urine or stool, abnormal discharge, fever, or any other reason. - Post Discharge Activity
[2020-04-18 05:17] LABS: ANISOCYTOSIS 2+; PLATELET ESTIMATE ADEQUATE
== END 2020-04-18 03:10 | disposition home or self-care (01) ==
LOC: JER 22:38
PROC: 3E0333Z Introduction of Anti-inflammatory into Peripheral Vein, Percutaneous Approach (ICD-10-PCS; principal; 2020-04-17)
DX: R10.84 Generalized abdominal pain (principal)
CPT/HCPCS: 36415; 76830-TC; 80053; 81003; 84703; 85025; 87086; 99284-25; J0131

== ENCOUNTER 2021-09-19 20:18 | Emergency (ER) | payer OTHER ==
[2021-09-19] MEDS ORDERED: ACETAMINOPHEN 500 MG TABLET (FP) PO ONE (20:26)
[2021-09-19] MEDS ORDERED: ACETAMINOPHEN 500 MG TABLET (FP) ONE (20:41)
[2021-09-19 20:43] VITALS: BP 106/54; BMI 33.5
[2021-09-19 22:00] VITALS: PULSE 94; TEMP 99.4
== END 2021-09-19 22:17 | disposition home or self-care (01) ==
LOC: FER 20:18
DX: R51.9 Headache, unspecified (principal); Y04.0XXA Assault by unarmed brawl or fight, initial encounter; Y92.9 Unspecified place or not applicable
CPT/HCPCS: 70450-TC; 70486-TC; 72125-TC; 81025; 99284-25

== ENCOUNTER 2023-08-23 19:00 | Emergency (ER) | payer SELFPAY ==
[2023-08-23 19:12] VITALS: BP 122/73; PULSE 109; RESP 18; TEMP 98.2; BMI 43.2
[2023-08-23] MEDS ORDERED: DEXAMETHASONE 4 MG TABLET (FP) PO ONE (21:06)
[2023-08-23] MEDS ORDERED: DEXAMETHASONE 4 MG TABLET (FP) ONE (21:27)
== END 2023-08-23 22:04 | disposition home or self-care (01) ==
LOC: JERFT 19:00
DX: R05.9 Cough, unspecified (principal); M79.10 Myalgia, unspecified site; R00.0 Tachycardia, unspecified; J02.9 Acute pharyngitis, unspecified; J11.1 Influenza due to unidentified influenza virus with other respiratory manifestations; H92.03 Otalgia, bilateral; Z20.822 Contact with and (suspected) exposure to COVID-19
CPT/HCPCS: 0241U-QW; 87070; 87651; 99283-25